=== PATIENT | female | born 1960 | race Caucasian/White ===

== ENCOUNTER 2018-02-02 10:38 | Emergency (ER) | payer OTHER ==
[~2018-02-02] VITALS: Ht 162.6 cm; Wt 79.4 kg
--- NOTE | ~2018-02-02 | EKG ---
[place] [address] [address] [facility] [place] [address] ELECTROCARDIOGRAM REPORT Name: YULIA MENDOZA Room #: [facility]P [facility]jel[facility] [id number] Admission: 02/02/18 Attend Phys: Discharge: 02/02/18 Date of : 62 Report #: [id number] THIS REPORT FOR: //name// [facility] [place], [place] ED Test Date: 2018-02-02 Test Time: 10:44:09 Pat Name: YULIA MENDOZA Department: Room: Gender: F Advertising Copy Writer: [facility] : 1960 Requested By: Andrea Kelley Order Number: [id number] MD: Vivek Leach Measurements Intervals Ona Rate: 87 P: 27 WV: 171 QRS: -18 QRSD: 91 T: 56 QT: 372 QTc: 448 Interpretive Statements Sinus rhythm Inferior infarct, old Compared to ECG 12/17/2014 10:20:05 No significant change was found Electronically Signed On 02-02-2018 16:52:52 CDT by Vivek Leach [email or web address] <ELECTRONICALLY SIGNED> By: Vivek Leach MD, [facility] 02/02/18 1652 1044 1044 Vivek Leach MD, FACC /EPI
[~2018-02-02 10:38] MED LIST: ACCUNEB SO1.25 MG/1; ACCUNEB SO1.25 MG/1 INH; CIPRO HC OTIC S10 ML OTIC; COLCRYS 0.6 MG0.6 MG PO; DIVIGEL0.25 MG TD; ESTRADIOL 1 MG T1 M1 PO; FLONASE 0.05%50 MCG NASAL; HYDROCODON-ACE1 EAC7; IBUPROFEN 400400 M2 PO; IMDUR 30 MG TAB30 M1 PO; MOBIC15 MG PO; NORCO 5-325 TA1 EACH PO; OMEPRAZOLE 20 M20 M1 PO; PREMARIN 0.3MG0.3 MG; TUSSIONEX PENN473 ML PO; ZPAK PO; ZYRTEC10 M2 PO; [UNRECOGNIZED DRUG - OTHER]
[2018-02-02] MEDS ORDERED: PROZAC10 MG PO (10:43)
[2018-02-02] MEDS ORDERED: VALIUM5 MG PO (10:43)
[2018-02-02] MEDS ORDERED: TESSALON PERLE100 MG PO (11:25)
[2018-02-02] MEDS ORDERED: ZPAK PO (11:25)
== END 2018-02-02 11:45 | disposition home or self-care (01) ==
LOC: ER 10:38
DX: J18.9 Pneumonia, unspecified organism (principal); R51 Headache; F41.9 Anxiety disorder, unspecified; K21.9 Gastro-esophageal reflux disease without esophagitis; J45.909 Unspecified asthma, uncomplicated; G43.909 Migraine, unspecified, not intractable, without status migrainosus; M54.2 Cervicalgia; G89.29 Other chronic pain; Z90.710 Acquired absence of both cervix and uterus; Z88.1 Allergy status to other antibiotic agents